=== PATIENT | male | born 1970 | race Caucasian/White ===

== ENCOUNTER 2018-09-09 12:33 | Inpatient (IN) | payer OTHER ==
[~2018-09-09] VITALS: Ht 170.2 cm; Wt 104.4 kg
[2018-09-09] MEDS ORDERED: ASPIRIN 325MG TABLET PO ONE (13:30)
[2018-09-09] MEDS ORDERED: LORAZEPAM 1MG TABLET PO ONE (13:30)
[2018-09-09 14:32] LABS: COLOR URINE YELLOW (YELLOW); KETONES URINE NEGATIVE (NEGATIVE); LEUKOCYTE ESTERASE URINE NEGATIVE (NEGATIVE); NITRITE URINE NEGATIVE (NEGATIVE); OCCULT BLOOD URINE NEGATIVE (NEGATIVE); PH URINE 5.5 (4.5-8.0); PROTEIN URINE TRACE (NEGATIVE); SPECIFIC GRAVITY URINE 1.023 (1.005-1.030); UROBILINOGEN URINE 0.2 E.U./dL (0.2-1.0)
[2018-09-09 14:34] LABS: CLARITY URINE CLEAR (CLEAR)
[2018-09-09] MEDS ORDERED: ONDANSETRON HCL 4MG/2ML INJ IV PRN (14:45)
[2018-09-09] MEDS ORDERED: KETOROLAC 15MG/ML VIAL IV PRN (14:45)
[2018-09-09] MEDS ORDERED: LORAZEPAM 0.5MG TABLET PO PRN (14:45)
[2018-09-09] MEDS ORDERED: ACETAMINOPHEN 325MG TABLET PO PRN (14:45)
[2018-09-09] MEDS ORDERED: MAGNESIUM/ALUMINUM HYDROXIDE/SIMETHICONE 30ML UDC PO PRN (14:45)
[2018-09-09] MEDS ORDERED: NITROGLYCERIN 0.4MG TABLET SL SL PRN (14:45)
[2018-09-09] MEDS ORDERED: DOCUSATE SODIUM 100MG CAPSULE PO PRN (14:45)
[2018-09-09] MEDS ORDERED: GUAIFENESIN 200MG/10ML SUGAR FREE UDC PO PRN (14:45)
[2018-09-09] MEDS ORDERED: ZOLPIDEM TARTRATE 5MG TABLET PO PRN (14:45)
[2018-09-09] MEDS ORDERED: NA PHOS,M-B/NA PHOS,DI-BA ENEMA 118ML PR PRN (14:45)
[2018-09-09] MEDS ORDERED: IPRATROPIUM/ALBUTEROL 0.5-3(2.5)MG/3ML NEB INH PRN (14:45)
[2018-09-09] MEDS ORDERED: CLONIDINE 0.1MG TABLET PO PRN (14:45)
[2018-09-09 14:53] LABS: BASOPHILS % 0.8 % (0.0-2.0); EOSINOPHILS % 0.9 % (0.0-5.0); HEMATOCRIT. 45.1 % (42.0-52.0); HEMOGLOBIN. 15.6 g/dL (14.0-18.0); LYMPHOCYTES % 11.7 % (20.0-50.0); MEAN CORPUSCULAR HEMOGLOBIN 31.3 pg (28.0-32.0); MEAN CORPUSCULAR VOLUME 90.6 fL (80.0-94.0); MEAN PLATELET VOLUME 8.1 fl (7.4-10.4); MONOCYTES % 8.8 % (2.0-8.0); NEUTROPHILS % 77.8 % (40.0-76.0); PLATELET 268 x1000/uL (130-400); RED BLOOD CELL COUNT 4.98 mill/uL (4.7-6.1)
[2018-09-09 14:54] LABS: INR 1.1; PARTIAL THROMBOPLASTIN TIME 26.1 sec (23.4-31.0); PROTHROMBIN TIME 10.6 sec (9.1-11.1)
[2018-09-09 14:57] LABS: CHLORIDE 106 mEq/L (98-107)
[2018-09-09 15:10] LABS: ETHANOL BLOOD < 10 mg/dL
[2018-09-09 15:13] LABS: HDL CHOLESTEROL 42 mg/dL (40-59); LDL CHOLESTEROL 79 mg/dL (5-100)
[2018-09-09 20:47] LABS: *AMPHETAMINES SCREEN URINE NEGATIVE (NEGATIVE); *BARBITURATES SCREEN URINE NEGATIVE (NEGATIVE); CANNABINOID URINE SCREEN NEGATIVE (NEGATIVE)
[2018-09-09 20:48] LABS: *BENZODIAZEPINES SCREEN URINE NEGATIVE (NEGATIVE); *COCAINE SCREEN URINE NEGATIVE (NEGATIVE); METHADONE URINE SCREEN NEGATIVE (NEGATIVE); OPIATES URINE SCREEN NEGATIVE (NEGATIVE); PHENCYCLIDINE URINE SCREEN NEGATIVE (NEGATIVE)
[2018-09-09 23:30] VITALS: BP 140/76
[2018-09-09 23:44] VITALS: BP 140/76
[2018-09-09] MEDS ORDERED: ASPI-1159 PO (23:48)
[2018-09-09] MEDS ORDERED: LIP40 PO (23:48)
[2018-09-09] MEDS ORDERED: LISI-186 PO (23:48)
[2018-09-09] MEDS ORDERED: METO-396 PO (23:49)
[2018-09-10] MEDS: TRAMADOL 50MG TABLET PO PRN ×2 (00:17→06:14)
[2018-09-10 00:19] LABS: CREATINE KINASE 122 IU/L (39-308); CREATINE KINASE MB FRACTION 1.3 ng/mL (0.5-3.6)
[2018-09-10 04:07] VITALS: BP 128/76
[2018-09-10 06:56] LABS: CREATINE KINASE 149 IU/L (39-308); CREATINE KINASE MB FRACTION 1.6 ng/mL (0.5-3.6)
[2018-09-10 08:00] VITALS: BP 130/88
[2018-09-10] MEDS ORDERED: ENOXAPARIN 40MG/0.4ML SYR SUBCUT SCH (09:00)
[2018-09-10] MEDS ORDERED: ASPIRIN 325MG EC TABLET PO SCH (09:00)
[2018-09-10] MEDS: FAMOTIDINE 20MG TABLET PO SCH ×2 (09:40→20:26)
[2018-09-10] MEDS: METOPROLOL TARTRATE 25MG TABLET PO SCH ×2 (09:42→20:26)
[2018-09-10 12:00] VITALS: BP 121/80
[2018-09-10] MEDS ORDERED: BUTALBITAL/ACETAMINOPHEN/CAFFEINE 50/325/40MG TABLET PO PRN (12:45)
[2018-09-10 16:00] VITALS: BP 116/63
[2018-09-10 19:00] VITALS: BP 113/63
[2018-09-10 20:00] VITALS: BP 113/63
[2018-09-10] MEDS ORDERED: ENOXAPARIN 30MG/0.3ML SYR SUBCUT SCH (21:00)
== END 2018-09-10 21:43 | disposition short-term general hospital (02) | DRG 311 ==
LOC: ER 12:52 → EDBEDREQ 13:38 → 5WST 14:13 → EDBEDREQTM 14:14 → EDBEDREQ 14:14 → SUPCPDRO 14:54 → ENRESERV 20:41
PROVIDERS: ADMIT Internal Medicine; ATTEND Internal Medicine
DX: I24.9 Acute ischemic heart disease, unspecified (principal); K21.9 Gastro-esophageal reflux disease without esophagitis; E66.9 Obesity, unspecified; E78.00 Pure hypercholesterolemia, unspecified; F41.0 Panic disorder [episodic paroxysmal anxiety]; I10 Essential (primary) hypertension; I25.2 Old myocardial infarction; Z95.5 Presence of coronary angioplasty implant and graft; Z68.36 Body mass index [BMI] 36.0-36.9, adult
CPT/HCPCS: 36415; 71045; 80061; 80305; 82550; 82553; 83036; 83880; 84484; 93005; 93306; 93970; 99285; G0482; J1650